=== PATIENT | male | born 1975 | race Caucasian/White ===

== ENCOUNTER → 2021-11-03 | Outpatient (CLI) | payer BC ==
--- NOTE | 2021-11-04 04:25 | MR ---
EXAMINATION TYPE: MR knee LT wo con DATE OF EXAM: 11/03/2021 COMPARISON: None HISTORY: Multiplanar multiecho imaging of the left knee with no contrast. The anterior and posterior cruciate ligaments appear intact. The lateral meniscus is intact. There is evidence of a horizontal tear within the posterior horn of the medial meniscus that almost extends t o the inferior surface. There is some increased signal in the subchondral medial tibial condyle consi stent with a bone bruise on the proton density images. The collateral ligaments appear intact. No fra cture line seen. There is mild knee joint effusion. The patella is intact. IMPRESSION: Knee joint effusion. Horizontal tear of the posterior horn medial meniscus. There is a bone bruise in volving the posterior medial tibial condyle. No fracture seen. No evidence of ligamentous tear.
== END | disposition home or self-care (01) ==
LOC: RADMRIMAIN 16:17
PROVIDERS: ATTEND Internal Medicine
DX: M23.322 Other meniscus derangements, posterior horn of medial meniscus, left knee (principal)